=== PATIENT | male | born 1980 | race African-American/Black ===

== ENCOUNTER 2019-07-30 14:26 | Inpatient (IN) | payer OTHER ==
[~2019-07-30] VITALS: Ht 175.3 cm; Wt 120.5 kg
[2019-07-30 15:12] LABS: BASO % 0 % (0-3); EOS # 0.1 x10^3/uL (0.0-0.7); EOS % 1 % (0-3); HEMATOCRIT 45.3 % (39.0-53.0); HEMOGLOBIN 15.7 g/dL (13.0-17.5); LYMPH # 1.5 x10^3/uL (1.0-4.8); LYMPH % 13 % (24-48); MEAN CORPUSCULAR HEMOGLOBIN 30 pg (25-35); MEAN CORPUSCULAR HGB CONC 35 g/dL (31-37); MEAN CORPUSCULAR VOLUME 87 fL (79-100); MONO # 0.8 x10^3/uL (0.0-1.1); MONO % 7 % (0-9); NEUT # 9.1 x10^3/uL (1.8-7.7); NEUT % 80 % (31-73); PLATELET COUNT 257 x10^3/uL (140-400); RED BLOOD COUNT 5.21 x10^6/uL (4.30-5.70); RED CELL DISTRIBUTION WIDTH 14.8 % (11.5-14.5); WHITE BLOOD COUNT 11.4 x10^3/uL (4.0-11.0)
[2019-07-30 15:17] LABS: CALCIUM 9.4 mg/dL (8.5-10.1); CREATININE 1.1 mg/dL (0.7-1.3); GFR 91.1; POTASSIUM 3.5 mmol/L (3.5-5.1)
[2019-07-30 15:25] LABS: ALBUMIN 4.1 g/dL (3.4-5.0); ALBUMIN/GLOBULIN RATIO 1.1 (1.0-1.7); MAGNESIUM 1.7 mg/dL (1.8-2.4); TOTAL BILIRUBIN 0.9 mg/dL (0.2-1.0)
[2019-07-30] MEDS ORDERED: IV NORMAL SALINE 1000ML BAG 1,000 ML IV ONE (15:30)
[2019-07-30] MEDS ORDERED: MORPHINE SULFATE 4 MG/ML VIAL. IV ONE (16:15)
[2019-07-30] MEDS ORDERED: ONDANSETRON PF 4 MG/2 ML VIAL. IV ONE (16:15)
--- NOTE | 2019-07-30 16:21 | RAD ---
CHEST AP ONLY History: Chest pain, dizziness Comparison: December 05, 2018 Findings: Single view of the chest is submitted. There is no infiltrate, pneumothorax, or effusion. The pericardial cardiac silhouette is within normal limits in size. Impression: 1. There is no radiographic evidence of acute cardiopulmonary disease. Electronically signed by: Cody Vences MD (07/30/2019 4:18 PM) [id number]
[2019-07-30] MEDS ORDERED: IOHEXOL 350 MG/ML 100 ML VIAL. IV ONE (16:30)
[2019-07-30] MEDS ORDERED: CONTRAST GIVEN. MC PRN (16:30)
--- NOTE | 2019-07-30 16:43 | PHYS DOC ---
Past Medical History Past Medical History: DVT, Other Additional Past Medical Histor: HYPERCANNOBOID Past Surgical History: Other Additional Past Surgical Histo: R WRIST ORIF Smoking Status: Current Every Day Smoker Alcohol Use: None Drug Use: Marijuana General Adult EDM: Chief Complaint: CHEST PAIN HPI: HPI: Patient is a 39 year old [f__sex] who presents with [] Review of Systems: Review of Systems: Constitutional: Denies fever or chills. [] Eyes: Denies change in visual acuity. [] HENT: Denies nasal congestion or sore throat. [] Respiratory: Denies cough or shortness of breath. [] Cardiovascular: Denies chest pain or edema. [] GI: Denies abdominal pain, nausea, vomiting, bloody stools or diarrhea. [] : Denies dysuria. [] Musculoskeletal: Denies back pain or joint pain. [] Integument: Denies rash. [] Neurologic: Denies headache, focal weakness or sensory changes. [] Endocrine: Denies polyuria or polydipsia. [] Lymphatic: Denies swollen glands. [] Psychiatric: Denies depression or anxiety. [] Heart Score: HEART Score for Chest Pain: HEART Score for Chest Pain Response (Comments) Value ECG Nonspecific Repolarizatio 1 Age < 45 0 Risk Factors 1 or 2 Risk Factors 1 Troponin < Normal Limit 0 Total 2 Risk Factors: Risk Factors: DM, Current or recent (<one month) smoker, HTN, HLP, family history of CAD, obesity. Risk Scores: Score 0 - 3: 2.5% MACE over next 6 weeks - Discharge Home Score 4 - 6: 20.3% MACE over next 6 weeks - Admit for Clinical Observation Score 7 - 10: 72.7% MACE over next 6 weeks - Early Invasive Strategies Current Medications: Current Medications Medications (Trade) Dose Ordered Sig/Anisha Start Time Stop Time Status Last Admin Dose Admin Info (CONTRAST GIVEN -- Rx MONITORING) 1 each PRN DAILY PRN 07/30/19 16:30 08/01/19 16:29 Iohexol (Omnipaque 350 Mg/ml) 100 ml 1X ONCE 07/30/19 16:30 07/30/19 16:31 DC Morphine Sulfate (Morphine Sulfate) 4 mg 1X ONCE 07/30/19 16:15 07/30/19 16:16 DC 07/30/19 16:18 4 MG Ondansetron HCl (Zofran) 4 mg 1X ONCE 07/30/19 16:15 07/30/19 16:16 DC 07/30/19 16:17 4 MG Sodium Chloride 1,000 ml @ 1,000 mls/hr 1X ONCE 07/30/19 15:30 07/30/19 16:29 DC 07/30/19 15:49 1,000 MLS/HR Allergies: Allergies: Allergies Coded Allergies Type Severity Reaction Last Updated Verified No Known Drug Allergies 12/05/18 No Physical Exam: PE: Constitutional: Well developed, well nourished, no acute distress, non-toxic a ppearance, obese. [] HENT: Normocephalic, atraumatic, bilateral external ears normal, oropharynx moist, no oral exudates, nose normal. [] Eyes: PERRLA, EOMI, conjunctiva normal, no discharge. [] Neck: Normal range of motion, no stridor. [] Cardiovascular:Heart rate irregular bradycardic rhythm, no murmur [] Lungs & Thorax: Bilateral breath sounds clear to auscultation, Respirations even and unlabored, no retractions, no respiratory distress [] Abdomen: soft, no tenderness Skin: Warm, dry, no erythema, no rash. [] Back: No tenderness, Extremities: No cyanosis, no clubbing, ROM intact, no edema. [] Neurologic: Alert and oriented X 3, no focal deficits noted. [] Psychologic: Affect normal, judgement normal, mood anxious Current Patient Data: Labs: Laboratory Tests Test 07/30/19 14:45 White Blood Count 11.4 x10^3/uL (4.0-11.0) H Red Blood Count 5.21 x10^6/uL (4.30-5.70) Hemoglobin 15.7 g/dL (13.0-17.5) Hematocrit 45.3 % (39.0-53.0) Mean Corpuscular Volume 87 fL (79-100) Mean Corpuscular Hemoglobin 30 pg (25-35) Mean Corpuscular Hemoglobin Concent 35 g/dL (31-37) Red Cell Distribution Width 14.8 % (11.5-14.5) H Platelet Count 257 x10^3/uL (140-400) Neutrophils (%) (Auto) 80 % (31-73) H Lymphocytes (%) (Auto) 13 % (24-48) L Monocytes (%) (Auto) 7 % (0-9) Eosinophils (%) (Auto) 1 % (0-3) Basophils (%) (Auto) 0 % (0-3) Neutrophils # (Auto) 9.1 x10^3/uL (1.8-7.7) H Lymphocytes # (Auto) 1.5 x10^3/uL (1.0-4.8) Monocytes # (Auto) 0.8 x10^3/uL (0.0-1.1) Eosinophils # (Auto) 0.1 x10^3/uL (0.0-0.7) Basophils # (Auto) 0.0 x10^3/uL (0.0-0.2) D-Dimer (Portia) 1.53 ug/mlFEU (0.00-0.50) H Sodium Level 139 mmol/L (136-145) Potassium Level 3.5 mmol/L (3.5-5.1) Chloride Level 103 mmol/L (98-107) Carbon Dioxide Level 23 mmol/L (21-32) Anion Gap 13 (6-14) Blood Urea Nitrogen 10 mg/dL (8-26) Creatinine 1.1 mg/dL (0.7-1.3) Estimated GFR (Cockcroft-Gault) 91.1 BUN/Creatinine Ratio 9 (6-20) Glucose Level 124 mg/dL (70-99) H Calcium Level 9.4 mg/dL (8.5-10.1) Magnesium Level 1.7 mg/dL (1.8-2.4) L Total Bilirubin 0.9 mg/dL (0.2-1.0) Aspartate Amino Transferase (AST) 27 U/L (15-37) Alanine Aminotransferase (ALT) 45 U/L (16-63) Alkaline Phosphatase 98 U/L (46-116) Creatine Kinase 337 U/L (39-308) H Creatine Kinase MB (Mass) 1.2 ng/mL (0.0-3.6) Creatine Kinase MB Relative Index 0.4 % (0-4) Troponin I Quantitative < 0.017 ng/mL (0.000-0.055) Total Protein 8.0 g/dL (6.4-8.2) Albumin 4.1 g/dL (3.4-5.0) Albumin/Globulin Ratio 1.1 (1.0-1.7) Ethyl Alcohol Level < 10 mg/dL (0-10) Laboratory Tests 07/30/19 14:45 Laboratory Tests 07/30/19 14:45 Vital Signs: Vital Signs Date Time Temp Pulse Resp B/P (MAP) Pulse Ox O2 Delivery O2 Flow Rate FiO2 07/30/19 16:18 99 Room Air 07/30/19 16:12 167/80 (109) 07/30/19 14:26 98.2 39 16 98.2 EKG: EK-sinus bradycardia with T abnormality in inferior leads, nonspecific ST abnormality, abnormal EKG, rate of 39, no STEMI read by Dr. Montano Radiology/Procedures: Radiology/Procedures: PROCEDURE: CHEST AP ONLY CHEST AP ONLY History: Chest pain, dizziness Comparison: December 05, 2018 Findings: Single view of the chest is submitted. There is no infiltrate, pneumothorax, or effusion. The pericardial cardiac silhouette is within normal limits in size. Impression: 1. There is no radiographic evidence of acute cardiopulmonary disease.[] Course & Med Decision Making: Course & Med Decision Making Pertinent Labs and Imaging studies reviewed. (See chart for details) Patient is a 39-year-old male who presents to the emergency department with complaints of awakening with nausea this morning having one episode of emesis and diaphoresis and since having complaints of pressure in his chest and feeling lightheaded. Patient appeared very anxious upon arrival. Work-up included: a CBC with white blood cell count of 11.4 otherwise unre markable; a d-dimer of 1.53; CMP revealed glucose of 124, magnesium 1.7, and CK 337. Patient's troponin was less than 0.017; patient's urine was unremarkable; urine drug screen was positive for cocaine, opiates, and cannabinoids Chest x-ray was unremarkable CT angio of chest revealed no pulmonary arterial disease or infiltrate a small hiatal hernia, and minimal mosaic attenuation which raises a question of mild small airway disease or small vessel disease. 1627- I spoke with Dr. De Guzman and discussed pt complaint of CP and bradycardia. Advised CT angio is pending. Will admit to hospitalist with serial enzymes ordered. 1707- I spoke with who is the admitting physician, and care was assumed following discussion of patient, will admit for chest pain and bradycardia. Patient's vital signs stable. Patient remains afebrile, appears nontoxic, respirations even and unlabored. Patient will be admitted to the tele floor. Patient's case and plan of care also discussed with Dr. Montano [] Tom Disclaimer: Tom Disclaimer: This electronic medical record was generated, in whole or in part, using a voice recognition dictation system. Departure Departure Impression: Primary Impression: Chest pain in adult Additional Impression: Bradycardia with 31-40 beats per minute Disposition: ADMITTED INPATIENT Admitting Physician: MAIRA Villanueva) Condition: STABLE Referrals: NO PCP (PCP) Scripts No Active Prescriptions or Reported Meds LISE EAST [employer] Jul 30, 2019 16:43
--- NOTE | 2019-07-30 17:00 | RAD ---
Examination: CT ANGIOGRAPHY CHEST History: Elevated d-dimer, chest pressure Comparison/Correlation: 07/30/2019 AP view of the chest Findings: Axial images of the chest were obtained following IV contrast according to pulmonary arteriography protocol. Sagittal and coronal reformatted images were provided. Maximum intensity projection images were provided. The pulmonary arterial vasculature is normal with no thromboembolic disease. No enlarged thoracic lymph nodes. No infiltrates or effusions. Mild mosaic attenuation of the lower lung ponce greater on the right is present and may represent air trapping or small airways disease. Tracheobronchial tree is unremarkable. Thoracic aorta is unremarkable although not opacified for arteriographic evaluation. Small hiatal hernia is present. Bony structures are unremarkable. Impression: No pulmonary arterial parenchymal disease or infiltrate. Small hiatal hernia. Minimal mosaic attenuation which raises question of mild small airways disease or small vessel disease. PQRS Compliance Statement: One or more of the following individualized dose reduction techniques were utilized for this examination: 1. Automated exposure control 2. Adjustment of the mA and/or kV according to patient size 3. Use of iterative reconstruction technique Electronically signed by: Florecnio Monae MD (07/30/2019 4:57 PM) [id number]
[2019-07-30] MEDS ORDERED: ONDANSETRON PF 4 MG/2 ML VIAL. IV PRN (17:15)
[2019-07-30] MEDS ORDERED: DOCUSATE SODIUM 100 MG CAPSULE. PO PRN (17:15)
[2019-07-30] MEDS ORDERED: ACETAMINOPHEN 325 MG TABLET. PO PRN (17:15)
[2019-07-30] MEDS ORDERED: guaiFENesin ORAL 200 MG/10 ML LIQUID. PO PRN (17:15)
[2019-07-30] MEDS ORDERED: cloNIDine HCL 0.1 MG TABLET PO PRN (17:15)
[2019-07-30] MEDS ORDERED: MORPHINE SULFATE 4 MG/ML VIAL. IV PRN (17:15)
[2019-07-30] MEDS ORDERED: ZOLPIDEM 5 MG TABLET. PO PRN (17:15)
[2019-07-30] MEDS ORDERED: ALBUTEROL SULFATE 2.5 MG/3 ML NEBU. NEB PRN (17:15)
[2019-07-30 17:33] LABS: BILIRUBIN,URINE NEGATIVE (NEG); CLARITY,URINE CLEAR; COLOR,URINE YELLOW; NITRITE,URINE NEGATIVE (NEG); PH,URINE 8.5 (<5.0-8.0); PROTEIN,URINE NEGATIVE (NEG-TRACE); UROBILINOGEN,URINE 0.2 mg/dL (0.2 mg/dL)
[2019-07-30 17:45] LABS: BARBITURATES NEG (NEG); BENZODIAZEPINES NEG (NEG); CANNABINOIDS POS (NEG); COCAINE POS (NEG); METHADONE NEG (NEG); OPIATES POS (NEG); PHENCYCLIDINE NEG (NEG)
[2019-07-30 17:50] LABS: BACTERIA,URINE 0 /HPF (0-FEW); RBC,URINE 0 /HPF (0-2); WBC,URINE OCC /HPF (0-4)
[2019-07-30 17:54] LABS: AMPHETAMINE/METHAMPHETAMINE NEG (NEG)
[2019-07-30 18:18] VITALS: BP 195/92
--- NOTE | 2019-07-30 18:49 | NUR ---
Patient arrived to room 262 via wheelchair from ER at 1755. Patient A&OX4. Patient complains of being short of breath, O2 saturation 98% on room air, however 2L Q2 NC placed on patient for comfort. No complaints of pain at this time. Will continue to monitor.
--- NOTE | 2019-07-30 19:37 | PDOC1 ---
History and Physical Date of Admission Date of Admission July 30, 2019 Identification/Chief Complaint Chief Complaint Chest pain Source Source: Chart review, Patient History of Present Illness History of Present Illness Patient is a 39-year-old gentleman with past medical history of polysubstance abuse including marijuana and cocaine who was in his usual state of health until the day of his admission when apparently he woke up with a chest pressure over the precordial area. The patient denies radiation to the arm of the jaw this was at rest and patient also has associated dyspnea. The patient due to his dyspnea and because of the current coronavirus situation got quite anxious and decided to come to the emergency department for evaluation. His work-up in the emergency department has yielded negative results with no on his no EKG changes the patient will be admitted at the request of the ER for chest pain evaluation. Patient is quite anxious at the time of my interview and he has thought in the past about quitting the substance abuse. Counseling has been done extensively and I have stressed the importance of quitting his current cocaine habit due to the adverse effects on his heart health. The patient denies fevers no cough or sputum production has been reported no changes in his sense of smell or taste buds he denies sick contacts he denies nausea vomiting no sensation of impending doom he describes the pain as a sharp sensation with a 8 out of 10 intensity at the worst times currently as ymptomatic. Plan of care has been explained in detail and all of his concerns were addressed to the best of my abilities Past Medical History Cardiovascular: CHF Psych: Addictions Past Surgical History Past Surgical History: No pertinent history Family History Family History: High Cholestrol Social History Smoke: # pack years (10) ALCOHOL: rare Drugs: Cocaine, Marijuana Current Problem List Problem List Problems Medical Problems: (1) Bradycardia with 31-40 beats per minute Status: Acute (2) Chest pain in adult Status: Acute Current Medications Current Medications Current Medications Medications (Trade) Dose Ordered Sig/Anisha Start Time Stop Time Status Last Admin Dose Admin Acetaminophen (Tylenol) 650 mg PRN Q4HRS PRN 07/30/19 17:15 Albuterol Sulfate (Ventolin Neb Soln) 2.5 mg PRN Q4HRS PRN 07/30/19 17:15 Clonidine HCl (Catapres) 0.1 mg PRN Q6HRS PRN 07/30/19 17:15 Docusate Sodium (Colace) 100 mg PRN BID PRN 07/30/19 17:15 Guaifenesin (Robitussin) 200 mg PRN Q4HRS PRN 07/30/19 17:15 Info (CONTRAST GIVEN -- Rx MONITORING) 1 each PRN DAILY PRN 07/30/19 16:30 08/01/19 16:29 Iohexol (Omnipaque 350 Mg/ml) 100 ml 1X ONCE 07/30/19 16:30 07/30/19 16:31 DC 07/30/19 16:51 100 ML Lorazepam (Ativan) 0.5 mg PRN Q4HRS PRN 07/30/19 17:15 Morphine Sulfate (Morphine Sulfate) 4 mg PRN Q2HR PRN 07/30/19 17:15 07/31/19 17:14 Ondansetron HCl (Zofran) 4 mg PRN Q8HRS PRN 07/30/19 17:15 07/31/19 17:14 Sodium Chloride 1,000 ml @ 1,000 mls/hr 1X ONCE 07/30/19 15:30 07/30/19 16:29 DC 07/30/19 15:49 1,000 MLS/HR Zolpidem Tartrate (Ambien) 5 mg PRN QHS PRN 07/30/19 17:15 Allergies Allergies Allergies Coded Allergies Type Severity Reaction Last Updated Verified No Known Drug Allergies 12/05/18 No ROS Review of System CONSTITUTIONAL: No fever or chills EYES: No recent changes SKIN: No rash or itching CARDIOVASCULAR: No chest pain, syncope, palpitations, or edema RESPIRATORY: No SOB or cough GASTROINTESTINAL: No nausea, vomiting or abdominal pain NEUROLOGICAL: No headaches or weakness ENDOCRINE: No cold or heat intolerance GENITOURINARY: No urgency or frequency of urination MUSCULOSKELETAL: No back pain or joint pain LYMPHATICS: No enlarged lymph nodes PSYCHIATRIC: No anxiety or depression Physical Exam Physical Exam GEN.: No apparent distress. Alert and oriented. HEENT: Head is normocephalic, atraumatic NECK: Supple. LUNGS: Clear to auscultation. HEART: RRR, S1, S2 present. Peripheral pulses intact ABDOMEN: Soft, nontender. Positive bowel sounds. EXTREMITIES: Without any cyanosis. NEUROLOGIC: Normal speech, normal tone PSYCHIATRIC: Normal affect, normal mood. SKIN: No ulcerations Vitals Vitals Vital Signs Date Time Temp Pulse Resp B/P (MAP) Pulse Ox O2 Delivery O2 Flow Rate FiO2 07/30/19 19:19 Room Air 07/30/19 18:18 98.1 50 24 195/92 (126) 98 98.1 07/30/19 18:00 2.0 Labs Labs Laboratory Tests Test 07/30/19 14:45 07/30/19 17:25 White Blood Count 11.4 x10^3/uL (4.0-11.0) Red Blood Count 5.21 x10^6/uL (4.30-5.70) Hemoglobin 15.7 g/dL (13.0-17.5) Hematocrit 45.3 % (39.0-53.0) Mean Corpuscular Volume 87 fL (79-100) Mean Corpuscular Hemoglobin 30 pg (25-35) Mean Corpuscular Hemoglobin Concent 35 g/dL (31-37) Red Cell Distribution Width 14.8 % (11.5-14.5) Platelet Count 257 x10^3/uL (140-400) Neutrophils (%) (Auto) 80 % (31-73) Lymphocytes (%) (Auto) 13 % (24-48) Monocytes (%) (Auto) 7 % (0-9) Eosinophils (%) (Auto) 1 % (0-3) Basophils (%) (Auto) 0 % (0-3) Neutrophils # (Auto) 9.1 x10^3/uL (1.8-7.7) Lymphocytes # (Auto) 1.5 x10^3/uL (1.0-4.8) Monocytes # (Auto) 0.8 x10^3/uL (0.0-1.1) Eosinophils # (Auto) 0.1 x10^3/uL (0.0-0.7) Basophils # (Auto) 0.0 x10^3/uL (0.0-0.2) D-Dimer (Portia) 1.53 ug/mlFEU (0.00-0.50) Sodium Level 139 mmol/L (136-145) Potassium Level 3.5 mmol/L (3.5-5.1) Chloride Level 103 mmol/L (98-107) Carbon Dioxide Level 23 mmol/L (21-32) Anion Gap 13 (6-14) Blood Urea Nitrogen 10 mg/dL (8-26) Creatinine 1.1 mg/dL (0.7-1.3) Estimated GFR (Cockcroft-Gault) 91.1 BUN/Creatinine Ratio 9 (6-20) Glucose Level 124 mg/dL (70-99) Calcium Level 9.4 mg/dL (8.5-10.1) Magnesium Level 1.7 mg/dL (1.8-2.4) Total Bilirubin 0.9 mg/dL (0.2-1.0) Aspartate Amino Transf (AST/SGOT) 27 U/L (15-37) Alanine Aminotransferase (ALT/SGPT) 45 U/L (16-63) Alkaline Phosphatase 98 U/L (46-116) Creatine Kinase 337 U/L (39-308) Creatine Kinase MB (Mass) 1.2 ng/mL (0.0-3.6) Creatine Kinase MB Relative Index 0.4 % (0-4) Troponin I Quantitative < 0.017 ng/mL (0.000-0.055) Total Protein 8.0 g/dL (6.4-8.2) Albumin 4.1 g/dL (3.4-5.0) Albumin/Globulin Ratio 1.1 (1.0-1.7) Ethyl Alcohol Level < 10 mg/dL (0-10) Urine Collection Type Unknown Urine Color Yellow Urine Clarity Clear Urine pH 8.5 (<5.0-8.0) Urine Specific [place] >=1.030 (1.000-1.030) Urine Protein Negative mg/dL (NEG-TRACE) Urine Glucose (UA) Negative mg/dL (NEG) Urine Ketones (Stick) 15 mg/dL (NEG) Urine Blood Negative (NEG) Urine Nitrite Negative (NEG) Urine Bilirubin Negative (NEG) Urine Urobilinogen Dipstick 0.2 mg/dL (0.2 mg/dL) Urine Leukocyte Esterase Negative (NEG) Urine RBC 0 /HPF (0-2) Urine WBC Occ /HPF (0-4) Urine Bacteria 0 /HPF (0-FEW) Urine Opiates Screen Pos (NEG) Urine Methadone Screen Neg (NEG) Urine Barbiturates Neg (NEG) Urine Phencyclidine Screen Neg (NEG) Urine Amphetamine/Methamphetamine Neg (NEG) Urine Benzodiazepines Screen Neg (NEG) Urine Cocaine Screen Pos (NEG) Urine Cannabinoids Screen Pos (NEG) Urine Ethyl Alcohol Neg (NEG) Laboratory Tests Test 07/30/19 14:45 07/30/19 17:25 White Blood Count 11.4 x10^3/uL (4.0-11.0) Red Blood Count 5.21 x10^6/uL (4.30-5.70) Hemoglobin 15.7 g/dL (13.0-17.5) Hematocrit 45.3 % (39.0-53.0) Mean Corpuscular Volume 87 fL (79-100) Mean Corpuscular Hemoglobin 30 pg (25-35) Mean Corpuscular Hemoglobin Concent 35 g/dL (31-37) Red Cell Distribution Width 14.8 % (11.5-14.5) Platelet Count 257 x10^3/uL (140-400) Neutrophils (%) (Auto) 80 % (31-73) Lymphocytes (%) (Auto) 13 % (24-48) Monocytes (%) (Auto) 7 % (0-9) Eosinophils (%) (Auto) 1 % (0-3) Basophils (%) (Auto) 0 % (0-3) Neutrophils # (Auto) 9.1 x10^3/uL (1.8-7.7) Lymphocytes # (Auto) 1.5 x10^3/uL (1.0-4.8) Monocytes # (Auto) 0.8 x10^3/uL (0.0-1.1) Eosinophils # (Auto) 0.1 x10^3/uL (0.0-0.7) Basophils # (Auto) 0.0 x10^3/uL (0.0-0.2) D-Dimer (Portia) 1.53 ug/mlFEU (0.00-0.50) Sodium Level 139 mmol/L (136-145) Potassium Level 3.5 mmol/L (3.5-5.1) Chloride Level 103 mmol/L (98-107) Carbon Dioxide Level 23 mmol/L (21-32) Anion Gap 13 (6-14) Blood Urea Nitrogen 10 mg/dL (8-26) Creatinine 1.1 mg/dL (0.7-1.3) Estimated GFR (Cockcroft-Gault) 91.1 BUN/Creatinine Ratio 9 (6-20) Glucose Level 124 mg/dL (70-99) Calcium Level 9.4 mg/dL (8.5-10.1) Magnesium Level 1.7 mg/dL (1.8-2.4) Total Bilirubin 0.9 mg/dL (0.2-1.0) Aspartate Amino Transf (AST/SGOT) 27 U/L (15-37) Alanine Aminotransferase (ALT/SGPT) 45 U/L (16-63) Alkaline Phosphatase 98 U/L (46-116) Creatine Kinase 337 U/L (39-308) Creatine Kinase MB (Mass) 1.2 ng/mL (0.0-3.6) Creatine Kinase MB Relative Index 0.4 % (0-4) Troponin I Quantitative < 0.017 ng/mL (0.000-0.055) Total Protein 8.0 g/dL (6.4-8.2) Albumin 4.1 g/dL (3.4-5.0) Albumin/Globulin Ratio 1.1 (1.0-1.7) Ethyl Alcohol Level < 10 mg/dL (0-10) Urine Collection Type Unknown Urine Color Yellow Urine Clarity Clear Urine pH 8.5 (<5.0-8.0) Urine Specific [place] >=1.030 (1.000-1.030) Urine Protein Negative mg/dL (NEG-TRACE) Urine Glucose (UA) Negative mg/dL (NEG) Urine Ketones (Stick) 15 mg/dL (NEG) Urine Blood Negative (NEG) Urine Nitrite Negative (NEG) Urine Bilirubin Negative (NEG) Urine Urobilinogen Dipstick 0.2 mg/dL (0.2 mg/dL) Urine Leukocyte Esterase Negative (NEG) Urine RBC 0 /HPF (0-2) Urine WBC Occ /HPF (0-4) Urine Bacteria 0 /HPF (0-FEW) Urine Opiates Screen Pos (NEG) Urine Methadone Screen Neg (NEG) Urine Barbiturates Neg (NEG) Urine Phencyclidine Screen Neg (NEG) Urine Amphetamine/Methamphetamine Neg (NEG) Urine Benzodiazepines Screen Neg (NEG) Urine Cocaine Screen Pos (NEG) Urine Cannabinoids Screen Pos (NEG) Urine Ethyl Alcohol Neg (NEG) VTE Prophylaxis Ordered VTE Prophylaxis Devices: No VTE Pharmacological Prophylaxi: Yes Assessment/Plan Assessment/Plan Chest pain secondary to cocaine abuse Hypertension uncontrolled most likely secondary to cocaine abuse Anxiety disorder most likely a consequence of his polysubstance abuse Polysubstance abuse counseling done Plan Admit the patient to the medical floor with telemetry so he can be trended with serial troponins Cardiology consultation Further recommendations based on the clinical course We will continue to stressed importance of abstaining from illegal drug abuse DVT prophylaxis with Lovenox JACOB ANTOINE MD Jul 30, 2019 19:37
[2019-07-30 19:50] VITALS: BP 137/80
[2019-07-30 23:05] VITALS: BP 146/74
[2019-07-30] MEDS: LORazepam 0.5 MG TABLET PO PRN (23:20)
[2019-07-31 00:39] LABS: CHOLESTEROL/HDL RATIO 3.8
[2019-07-31 03:45] VITALS: BP 131/64
[2019-07-31] MEDS: ONDANSETRON PF 4 MG/2 ML VIAL. IV PRN ×2 (03:49→09:22)
[2019-07-31] MEDS: LORazepam 0.5 MG TABLET PO PRN (03:49)
--- NOTE | 2019-07-31 06:07 | EKG ---
[facility] [address] [place] [address] Test Date: 2019-07-30 Test Time: 14:34:41 Pat Name: JACOBY TORRES Department: Room: 262 1 Gender: M Stock Or Delivery Clerk: : 1980 Requested By: LISE EAST Order Number: [id number] Reading MD: Ayan Larsen Measurements Intervals [place] Rate: 39 P: -30 DE: 194 QRS: 42 QRSD: 84 T: -22 QT: 568 QTc: 462 Interpretive Statements SINUS BRADYCARDIA T ABNORMALITY IN INFERIOR LEADS NON SPECIFIC ST-T ABNORMALITY Electronically Signed On 07-31-2019 11:16:18 CDT by Ayan Larsen
[2019-07-31 07:00] VITALS: BP 124/63
[2019-07-31 09:47] LABS: CALCIUM 8.9 mg/dL (8.5-10.1); CREATININE 1.2 mg/dL (0.7-1.3); GFR 82.4; MAGNESIUM 1.8 mg/dL (1.8-2.4); POTASSIUM 3.5 mmol/L (3.5-5.1)
--- NOTE | 2019-07-31 10:09 | PDOC2 ---
VICKI LIN APRN 07/31/19 1009: CARDIAC CONSULT DATE OF CONSULT Date of Consult DATE: 07/31/19 TIME: 10:03 REASON FOR CONSULT Reason for Consult: Chest pain Bradycardia REFERRING PHYSICIAN Referring Physician: Sharon Sanford APRN SOURCE Source: Chart review, Patient HISTORY OF PRESENT ILLNESS HISTORY OF PRESENT ILLNESS This is a 39 yo male who presented secondary to chest pain. Patient reports he w smiley up yesterday morning with nausea. Had episode of vomiting and then began having burning pain in his central chest. Pain persisted and continued to feel nauseated so he came to the ED for further evaluation and treatment. No associated shortness of breath, dizziness, diaphoresis, or palpitations. Admits to routine cocaine and marijuana use. Is interested in quitting. Continue to have burning sensation in central chest. PAST MEDICAL HISTORY Cardiovascular: No pertinent hx Pulmonary: No pertinent hx Heme/Onc: Other (DVT) Hepatobiliary: No pertinent hx Rheumatologic: No pertinent hx Infectious disease: No pertinent hx Renal/: No pertinent hx Endocrine: No pertinent hx PAST SURGICAL HISTORY Past Surgical History: No pertinent history FAMILY HISTORY Family History: Diabetes, Hypertension SOCIAL HISTORY Smoke: 1 pack per day ALCOHOL: none Drugs: Cocaine, Marijuana Lives: with Family CURRENT MEDICATIONS CURRENT MEDICATIONS Current Medications Medications (Trade) Dose Ordered Sig/Anisha Route PRN Reason Start Time Stop Time Status Last Admin Dose Admin Sodium Chloride 1,000 ml @ 1,000 mls/hr 1X ONCE IV 07/30/19 15:30 07/30/19 16:29 DC 07/30/19 15:49 Morphine Sulfate (Morphine Sulfate) 4 mg 1X ONCE IV 07/30/19 16:15 07/30/19 16:16 DC 07/30/19 16:18 Ondansetron HCl (Zofran) 4 mg 1X ONCE IV 07/30/19 16:15 07/30/19 16:16 DC 07/30/19 16:17 Iohexol (Omnipaque 350 Mg/ml) 100 ml 1X ONCE IV 07/30/19 16:30 07/30/19 16:31 DC 07/30/19 16:51 Ondansetron HCl (Zofran) 4 mg PRN Q4HRS PRN IV NAUSEA/VOMITING 07/30/19 17:15 07/31/19 09:22 Lorazepam (Ativan) 0.5 mg PRN Q4HRS PRN PO ANXIETY / AGITATION 07/30/19 17:15 07/31/19 03:49 ALLERGIES ALLERGIES: Coded Allergies: No Known Drug Allergies (Unverified , 12/05/18) ROS Review of System 14 point ROS conducted with pertinent positives noted above in HPI PHYSICAL EXAM General: Alert, Oriented X3, Cooperative, No acute distress HEENT: Atraumatic, Mucous membr. moist/pink Lungs: Clear to auscultation Heart: Regular rate, Normal S1, Normal S2 Abdomen: Soft, No tenderness Extremities: No edema, Normal pulses Skin: No significant lesion Neuro: Normal speech, Sensation intact Psych/Mental Status: Mental status NL, Mood NL MUSCULOSKELETAL: No joint tenderness VITALS/I&O VITALS/I&O: Vital Signs Date Time Temp Pulse Resp B/P (MAP) Pulse Ox O2 Delivery O2 Flow Rate FiO2 07/31/19 07:00 97.9 60 16 124/63 (83) 97 Room Air 97.9 07/30/19 18:00 2.0 I & O 07/30/19 07/30/19 07/31/19 15:00 23:00 07:00 Intake Total 1000 ml 0 ml Output Total 450 ml 400 ml Balance 550 ml -400 ml LABS Lab: Laboratory Tests Test 07/30/19 14:45 07/30/19 17:25 07/30/19 21:05 07/31/19 00:14 White Blood Count 11.4 x10^3/uL (4.0-11.0) H Red Blood Count 5.21 x10^6/uL (4.30-5.70) Hemoglobin 15.7 g/dL (13.0-17.5) Hematocrit 45.3 % (39.0-53.0) Mean Corpuscular Volume 87 fL (79-100) Mean Corpuscular Hemoglobin 30 pg (25-35) Mean Corpuscular Hemoglobin Concent 35 g/dL (31-37) Red Cell Distribution Width 14.8 % (11.5-14.5) H Platelet Count 257 x10^3/uL (140-400) Neutrophils (%) (Auto) 80 % (31-73) H Lymphocytes (%) (Auto) 13 % (24-48) L Monocytes (%) (Auto) 7 % (0-9) Eosinophils (%) (Auto) 1 % (0-3) Basophils (%) (Auto) 0 % (0-3) Neutrophils # (Auto) 9.1 x10^3/uL (1.8-7.7) H Lymphocytes # (Auto) 1.5 x10^3/uL (1.0-4.8) Monocytes # (Auto) 0.8 x10^3/uL (0.0-1.1) Eosinophils # (Auto) 0.1 x10^3/uL (0.0-0.7) Basophils # (Auto) 0.0 x10^3/uL (0.0-0.2) D-Dimer (Portia) 1.53 ug/mlFEU (0.00-0.50) H Sodium Level 139 mmol/L (136-145) Potassium Level 3.5 mmol/L (3.5-5.1) Chloride Level 103 mmol/L (98-107) Carbon Dioxide Level 23 mmol/L (21-32) Anion Gap 13 (6-14) Blood Urea Nitrogen 10 mg/dL (8-26) Creatinine 1.1 mg/dL (0.7-1.3) Estimated GFR (Cockcroft-Gault) 91.1 BUN/Creatinine Ratio 9 (6-20) Glucose Level 124 mg/dL (70-99) H Calcium Level 9.4 mg/dL (8.5-10.1) Magnesium Level 1.7 mg/dL (1.8-2.4) L Total Bilirubin 0.9 mg/dL (0.2-1.0) Aspartate Amino Transferase (AST) 27 U/L (15-37) Alanine Aminotransferase (ALT) 45 U/L (16-63) Alkaline Phosphatase 98 U/L (46-116) Creatine Kinase 337 U/L (39-308) H Creatine Kinase MB (Mass) 1.2 ng/mL (0.0-3.6) Creatine Kinase MB Relative Index 0.4 % (0-4) Troponin I Quantitative < 0.017 ng/mL (0.000-0.055) < 0.017 ng/mL (0.000-0.055) < 0.017 ng/mL (0.000-0.055) Total Protein 8.0 g/dL (6.4-8.2) Albumin 4.1 g/dL (3.4-5.0) Albumin/Globulin Ratio 1.1 (1.0-1.7) Ethyl Alcohol Level < 10 mg/dL (0-10) Urine Collection Type Unknown Urine Color Yellow Urine Clarity Clear Urine pH 8.5 (<5.0-8.0) Urine Specific [place] >=1.030 (1.000-1.030) Urine Protein Negative mg/dL (NEG-TRACE) Urine Glucose (UA) Negative mg/dL (NEG) Urine Ketones (Stick) 15 mg/dL (NEG) Urine Blood Negative (NEG) Urine Nitrite Negative (NEG) Urine Bilirubin Negative (NEG) Urine Urobilinogen Dipstick 0.2 mg/dL (0.2 mg/dL) Urine Leukocyte Esterase Negative (NEG) Urine RBC 0 /HPF (0-2) Urine WBC Occ /HPF (0-4) Urine Bacteria 0 /HPF (0-FEW) Urine Opiates Screen Pos (NEG) Urine Methadone Screen Neg (NEG) Urine Barbiturates Neg (NEG) Urine Phencyclidine Screen Neg (NEG) Urine Amphetamine/Methamphetamine Neg (NEG) Urine Benzodiazepines Screen Neg (NEG) Urine Cocaine Screen Pos (NEG) Urine Cannabinoids Screen Pos (NEG) Urine Ethyl Alcohol Neg (NEG) Triglycerides Level 53 mg/dL (0-150) Cholesterol Level 204 mg/dL (0-200) H LDL Cholesterol, Calculated 139 mg/dL (0-100) H VLDL Cholesterol, Calculated 11 mg/dL (0-40) Non-HDL Cholesterol Calculated 150 mg/dL (0-129) H HDL Cholesterol 54 mg/dL (40-60) Cholesterol/HDL Ratio 3.8 Test 07/31/19 09:05 Sodium Level 138 mmol/L (136-145) Potassium Level 3.5 mmol/L (3.5-5.1) Chloride Level 100 mmol/L (98-107) Carbon Dioxide Level 25 mmol/L (21-32) Anion Gap 13 (6-14) Blood Urea Nitrogen 14 mg/dL (8-26) Creatinine 1.2 mg/dL (0.7-1.3) Estimated GFR (Cockcroft-Gault) 82.4 Glucose Level 115 mg/dL (70-99) H Calcium Level 8.9 mg/dL (8.5-10.1) Magnesium Level 1.8 mg/dL (1.8-2.4) Laboratory Tests 07/30/19 14:45 Laboratory Tests 07/30/19 14:45 07/31/19 09:05 ASSESSMENT/PLAN ASSESSMENT/PLAN 1. Chest pain, atypical. AMI ruled out. Most probably GI in nature. 2. Hyperlipidemia 3. Sinus bradycardia. Lowest 45. No pauses. Appropriate chronotropic response 4. GERD 5. H/o DVT; previously on OAC, but moved from [place] to [place] and ran out of meds and never had follow up 6. Substance abuse; cocaine/marijuana use 7. Tobaccoism 8. Elevated d-dimer; CTA negative for PE Recommendations GI cocktail Echo to assess LV systolic function Avoid AV charlene blocking agents Discussed/encouraged cessation from recreational drugs and tobacco. Patient wanting to quit. If echo WNL, may discharge from a CV standpoint. MYESHA ROBBINS MD 07/31/19 1419: CARDIAC CONSULT ASSESSMENT/PLAN ASSESSMENT/PLAN Patient seen and examined. Agree with CATERING COORDINATOR's assessment and plan. Chest pain with atypical features and most probably GI etiology. Myocardial infarction has been ruled out. 2D echo showed normal LV systolic function without any wall motion abnormalities. Okay for DC from cardiac standpoint. Thank you for your consultation. VICKI LIN APRN Jul 31, 2019 10:09 MYESHA ROBBINS MD Jul 31, 2019 14:19
[2019-07-31] MEDS ORDERED: POTASSIUM CHLORIDE 20 MEQ TABLET.ER. PO ONE (12:15)
[2019-07-31] MEDS ORDERED: ONDA4TAB7 PO (12:20)
--- NOTE | 2019-07-31 12:29 | PDOC3 ---
Discharge Summary Visit Information Date of Admission: Jul 30, 2019 Date of Discharge: Jul 31, 2019 Final Diagnosis Chest pain secondary to cocaine abuse Hypertension uncontrolled most likely secondary to cocaine abuse Anxiety disorder most likely a consequence of his polysubstance abuse Polysubstance abuse counseling done Problems Medical Problems: (1) Bradycardia with 31-40 beats per minute Status: Acute (2) Chest pain in adult Status: Acute Brief Hospital Course Allergies Allergies Coded Allergies Type Severity Reaction Last Updated Verified No Known Drug Allergies 12/05/18 No Vital Signs Vital Signs Date Time Temp Pulse Resp B/P (MAP) Pulse Ox O2 Delivery O2 Flow Rate FiO2 07/31/19 08:00 Room Air 07/31/19 07:00 97.9 60 16 124/63 (83) 97 97.9 07/30/19 18:00 2.0 Lab Results Laboratory Tests Test 07/30/19 14:45 07/30/19 17:25 07/30/19 21:05 07/31/19 00:14 White Blood Count 11.4 x10^3/uL (4.0-11.0) Red Blood Count 5.21 x10^6/uL (4.30-5.70) Hemoglobin 15.7 g/dL (13.0-17.5) Hematocrit 45.3 % (39.0-53.0) Mean Corpuscular Volume 87 fL (79-100) Mean Corpuscular Hemoglobin 30 pg (25-35) Mean Corpuscular Hemoglobin Concent 35 g/dL (31-37) Red Cell Distribution Width 14.8 % (11.5-14.5) Platelet Count 257 x10^3/uL (140-400) Neutrophils (%) (Auto) 80 % (31-73) Lymphocytes (%) (Auto) 13 % (24-48) Monocytes (%) (Auto) 7 % (0-9) Eosinophils (%) (Auto) 1 % (0-3) Basophils (%) (Auto) 0 % (0-3) Neutrophils # (Auto) 9.1 x10^3/uL (1.8-7.7) Lymphocytes # (Auto) 1.5 x10^3/uL (1.0-4.8) Monocytes # (Auto) 0.8 x10^3/uL (0.0-1.1) Eosinophils # (Auto) 0.1 x10^3/uL (0.0-0.7) Basophils # (Auto) 0.0 x10^3/uL (0.0-0.2) D-Dimer (Portia) 1.53 ug/mlFEU (0.00-0.50) Sodium Level 139 mmol/L (136-145) Potassium Level 3.5 mmol/L (3.5-5.1) Chloride Level 103 mmol/L (98-107) Carbon Dioxide Level 23 mmol/L (21-32) Anion Gap 13 (6-14) Blood Urea Nitrogen 10 mg/dL (8-26) Creatinine 1.1 mg/dL (0.7-1.3) Estimated GFR (Cockcroft-Gault) 91.1 BUN/Creatinine Ratio 9 (6-20) Glucose Level 124 mg/dL (70-99) Calcium Level 9.4 mg/dL (8.5-10.1) Magnesium Level 1.7 mg/dL (1.8-2.4) Total Bilirubin 0.9 mg/dL (0.2-1.0) Aspartate Amino Transf (AST/SGOT) 27 U/L (15-37) Alanine Aminotransferase (ALT/SGPT) 45 U/L (16-63) Alkaline Phosphatase 98 U/L (46-116) Creatine Kinase 337 U/L (39-308) Creatine Kinase MB (Mass) 1.2 ng/mL (0.0-3.6) Creatine Kinase MB Relative Index 0.4 % (0-4) Troponin I Quantitative < 0.017 ng/mL (0.000-0.055) < 0.017 ng/mL (0.000-0.055) < 0.017 ng/mL (0.000-0.055) Total Protein 8.0 g/dL (6.4-8.2) Albumin 4.1 g/dL (3.4-5.0) Albumin/Globulin Ratio 1.1 (1.0-1.7) Ethyl Alcohol Level < 10 mg/dL (0-10) Urine Collection Type Unknown Urine Color Yellow Urine Clarity Clear Urine pH 8.5 (<5.0-8.0) Urine Specific [place] >=1.030 (1.000-1.030) Urine Protein Negative mg/dL (NEG-TRACE) Urine Glucose (UA) Negative mg/dL (NEG) Urine Ketones (Stick) 15 mg/dL (NEG) Urine Blood Negative (NEG) Urine Nitrite Negative (NEG) Urine Bilirubin Negative (NEG) Urine Urobilinogen Dipstick 0.2 mg/dL (0.2 mg/dL) Urine Leukocyte Esterase Negative (NEG) Urine RBC 0 /HPF (0-2) Urine WBC Occ /HPF (0-4) Urine Bacteria 0 /HPF (0-FEW) Urine Opiates Screen Pos (NEG) Urine Methadone Screen Neg (NEG) Urine Barbiturates Neg (NEG) Urine Phencyclidine Screen Neg (NEG) Urine Amphetamine/Methamphetamine Neg (NEG) Urine Benzodiazepines Screen Neg (NEG) Urine Cocaine Screen Pos (NEG) Urine Cannabinoids Screen Pos (NEG) Urine Ethyl Alcohol Neg (NEG) Triglycerides Level 53 mg/dL (0-150) Cholesterol Level 204 mg/dL (0-200) LDL Cholesterol, Calculated 139 mg/dL (0-100) VLDL Cholesterol, Calculated 11 mg/dL (0-40) Non-HDL Cholesterol Calculated 150 mg/dL (0-129) HDL Cholesterol 54 mg/dL (40-60) Cholesterol/HDL Ratio 3.8 Test 07/31/19 09:05 Sodium Level 138 mmol/L (136-145) Potassium Level 3.5 mmol/L (3.5-5.1) Chloride Level 100 mmol/L (98-107) Carbon Dioxide Level 25 mmol/L (21-32) Anion Gap 13 (6-14) Blood Urea Nitrogen 14 mg/dL (8-26) Creatinine 1.2 mg/dL (0.7-1.3) Estimated GFR (Cockcroft-Gault) 82.4 Glucose Level 115 mg/dL (70-99) Calcium Level 8.9 mg/dL (8.5-10.1) Magnesium Level 1.8 mg/dL (1.8-2.4) Thyroid Stimulating Hormone (TSH) 0.459 uIU/mL (0.358-3.74) Laboratory Tests Test 07/30/19 14:45 07/30/19 17:25 07/30/19 21:05 07/31/19 00:14 White Blood Count 11.4 x10^3/uL (4.0-11.0) Red Blood Count 5.21 x10^6/uL (4.30-5.70) Hemoglobin 15.7 g/dL (13.0-17.5) Hematocrit 45.3 % (39.0-53.0) Mean Corpuscular Volume 87 fL (79-100) Mean Corpuscular Hemoglobin 30 pg (25-35) Mean Corpuscular Hemoglobin Concent 35 g/dL (31-37) Red Cell Distribution Width 14.8 % (11.5-14.5) Platelet Count 257 x10^3/uL (140-400) Neutrophils (%) (Auto) 80 % (31-73) Lymphocytes (%) (Auto) 13 % (24-48) Monocytes (%) (Auto) 7 % (0-9) Eosinophils (%) (Auto) 1 % (0-3) Basophils (%) (Auto) 0 % (0-3) Neutrophils # (Auto) 9.1 x10^3/uL (1.8-7.7) Lymphocytes # (Auto) 1.5 x10^3/uL (1.0-4.8) Monocytes # (Auto) 0.8 x10^3/uL (0.0-1.1) Eosinophils # (Auto) 0.1 x10^3/uL (0.0-0.7) Basophils # (Auto) 0.0 x10^3/uL (0.0-0.2) D-Dimer (Portia) 1.53 ug/mlFEU (0.00-0.50) Sodium Level 139 mmol/L (136-145) Potassium Level 3.5 mmol/L (3.5-5.1) Chloride Level 103 mmol/L (98-107) Carbon Dioxide Level 23 mmol/L (21-32) Anion Gap 13 (6-14) Blood Urea Nitrogen 10 mg/dL (8-26) Creatinine 1.1 mg/dL (0.7-1.3) Estimated GFR (Cockcroft-Gault) 91.1 BUN/Creatinine Ratio 9 (6-20) Glucose Level 124 mg/dL (70-99) Calcium Level 9.4 mg/dL (8.5-10.1) Magnesium Level 1.7 mg/dL (1.8-2.4) Total Bilirubin 0.9 mg/dL (0.2-1.0) Aspartate Amino Transf (AST/SGOT) 27 U/L (15-37) Alanine Aminotransferase (ALT/SGPT) 45 U/L (16-63) Alkaline Phosphatase 98 U/L (46-116) Creatine Kinase 337 U/L (39-308) Creatine Kinase MB (Mass) 1.2 ng/mL (0.0-3.6) Creatine Kinase MB Relative Index 0.4 % (0-4) Troponin I Quantitative < 0.017 ng/mL (0.000-0.055) < 0.017 ng/mL (0.000-0.055) < 0.017 ng/mL (0.000-0.055) Total Protein 8.0 g/dL (6.4-8.2) Albumin 4.1 g/dL (3.4-5.0) Albumin/Globulin Ratio 1.1 (1.0-1.7) Ethyl Alcohol Level < 10 mg/dL (0-10) Urine Collection Type Unknown Urine Color Yellow Urine Clarity Clear Urine pH 8.5 (<5.0-8.0) Urine Specific [place] >=1.030 (1.000-1.030) Urine Protein Negative mg/dL (NEG-TRACE) Urine Glucose (UA) Negative mg/dL (NEG) Urine Ketones (Stick) 15 mg/dL (NEG) Urine Blood Negative (NEG) Urine Nitrite Negative (NEG) Urine Bilirubin Negative (NEG) Urine Urobilinogen Dipstick 0.2 mg/dL (0.2 mg/dL) Urine Leukocyte Esterase Negative (NEG) Urine RBC 0 /HPF (0-2) Urine WBC Occ /HPF (0-4) Urine Bacteria 0 /HPF (0-FEW) Urine Opiates Screen Pos (NEG) Urine Methadone Screen Neg (NEG) Urine Barbiturates Neg (NEG) Urine Phencyclidine Screen Neg (NEG) Urine Amphetamine/Methamphetamine Neg (NEG) Urine Benzodiazepines Screen Neg (NEG) Urine Cocaine Screen Pos (NEG) Urine Cannabinoids Screen Pos (NEG) Urine Ethyl Alcohol Neg (NEG) Triglycerides Level 53 mg/dL (0-150) Cholesterol Level 204 mg/dL (0-200) LDL Cholesterol, Calculated 139 mg/dL (0-100) VLDL Cholesterol, Calculated 11 mg/dL (0-40) Non-HDL Cholesterol Calculated 150 mg/dL (0-129) HDL Cholesterol 54 mg/dL (40-60) Cholesterol/HDL Ratio 3.8 Test 07/31/19 09:05 Sodium Level 138 mmol/L (136-145) Potassium Level 3.5 mmol/L (3.5-5.1) Chloride Level 100 mmol/L (98-107) Carbon Dioxide Level 25 mmol/L (21-32) Anion Gap 13 (6-14) Blood Urea Nitrogen 14 mg/dL (8-26) Creatinine 1.2 mg/dL (0.7-1.3) Estimated GFR (Cockcroft-Gault) 82.4 Glucose Level 115 mg/dL (70-99) Calcium Level 8.9 mg/dL (8.5-10.1) Magnesium Level 1.8 mg/dL (1.8-2.4) Thyroid Stimulating Hormone (TSH) 0.459 uIU/mL (0.358-3.74) Brief Hospital Course MR. Weber is a 39 yo male admit with chest pain after polysubstance abuse cocaine and THC pos urine. chest pain better after overnight, stil some nausea, was NPO, echo done, Discharge Information Condition at Discharge: Improved Follow Up: Weeks Disposition/Orders: D/C to Home Scheduled Ondansetron Hcl (Zofran) 4 Mg Tablet, 1 TAB PO Q6HRS for nausea, #20 Prescribed by: SHEA CALDERON on 07/31/19 1220 Patient Instructions Patient Instructions face to face eval < 30 min SHEA CALDERON MD Jul 31, 2019 12:29
[2019-07-31] MEDS ORDERED: LIDO:MAALOX 1:1 20 ML SINGLE DOSE. SWSW ONE (12:30)
--- NOTE | 2019-07-31 13:05 | CARD ---
MR#: [id number] Date of Study: 07/31/2019 Ordering Physician: VICKI LIN, Referring Physician: VICKI LIN, Tech: Jyoti Grace RAYNE APPROVED REPORT EXAM: Two-dimensional and M-mode echocardiogram with Doppler and color Doppler. Other Information Quality : Good Rhythm : Bradycardia INDICATION Chest Pain RISK FACTORS Smoking 2D DIMENSIONS RVDd2.5 (2.9-3.5cm)Left Atrium(2D)3.6 (1.6-4.0cm) IVSd1.1 (0.7-1.1cm)Aortic Root(2D)2.7 (2.0-3.7cm) LVDd5.4 (3.9-5.9cm)LVOT Diameter2.2 (1.8-2.4cm) PWd1.0 (0.7-1.1cm)LVDs3.3 (2.5-4.0cm) FS (%) 30.0 %SV94.3 ml LVEF(%)60.0 (>50%) Aortic Valve AoV Peak Deshaun.174.2cm/sAoV VTI32.1cm AO Peak GR.12.1mmHgLVOT Peak Deshaun.135.8cm/s AO Mean GR.6mmHgAVA (VMAX)2.91cm2 Mitral Valve MV E Emfwgieo46.5cm/sMV DECEL [id number] MV A Wfoigsaq27.9cm/sE/A Ratio1.6 Pulmonary Vein S1 Aveemryu94.4cm/sD2 Lezwznwy82.2cm/s LEFT VENTRICLE The left ventricle is normal size. There is normal left ventricular wall thickness. The left ventricu lar systolic function is normal. The Ejection Fraction is 55-60%. There is normal LV segmental wall m otion. RIGHT VENTRICLE The right ventricle is normal size. The right ventricular systolic function is normal. ATRIA The left atrium size is normal. The right atrium size is normal. The interatrial septum is intact wit h no evidence for an atrial septal defect or patent foramen ovale as noted on 2-D or Doppler imaging. AORTIC VALVE The aortic valve is normal in structure and function. Doppler and Color Flow revealed no significant aortic regurgitation. There is no significant aortic valvular stenosis. MITRAL VALVE The anterior mitral valve leaflet is redundant but opens well. There is no evidence of mitral valve p rolapse. There is no mitral valve stenosis. Doppler and Color Flow revealed no mitral valve regurgita tion noted. TRICUSPID VALVE The tricuspid valve is normal in structure and function. Doppler and Color Flow revealed trace tricus pid regurgitation. There is no tricuspid valve stenosis. PULMONIC VALVE The pulmonic valve is not well visualized. Doppler and Color Flow revealed mild pulmonic valvular reg urgitation. There is no pulmonic valvular stenosis. GREAT VESSELS The aortic root is normal in size. The ascending aorta is normal in size. The IVC is normal in size a nd collapses >50% with inspiration. PERICARDIAL EFFUSION There is no evidence of significant pericardial effusion. Critical Notification Critical Value: No <Conclusion> The left ventricular systolic function is normal. The Ejection Fraction is 55-60%. There is normal LV segmental wall motion. Doppler and Color Flow revealed trace tricuspid regurgitation. There is no evidence of significant pericardial effusion. Signed by : Ludin Arana, Electronically Approved : 07/31/2019 13:05:14
--- NOTE | 2019-07-31 14:00 | NUR ---
Discharge Note: [facility] Discharge instructions and discharge home medications reviewed with Patient and a copy given. All questions have been answered and understanding verbalized. The following instructions and handouts were given: Follow ups and discharge instructions. Discontinued lines and drains: Right EJ Patient discharged to Home with self care
[2019-08-01] MEDS ORDERED: ONDA4TAB12 PO (08:33)
== END 2019-07-31 14:45 | disposition home or self-care (01) | DRG 918 ==
LOC: ER 14:26 → 2 SOUTH 17:07
PROVIDERS: ADMIT Internal Medicine; ATTEND Internal Medicine
DX: T40.5X1A Poisoning by cocaine, accidental (unintentional), initial encounter (principal); E78.5 Hyperlipidemia, unspecified; F12.10 Cannabis abuse, uncomplicated; F14.10 Cocaine abuse, uncomplicated; F17.210 Nicotine dependence, cigarettes, uncomplicated; F41.9 Anxiety disorder, unspecified; I11.0 Hypertensive heart disease with heart failure; I50.9 Heart failure, unspecified; R07.89 Other chest pain; R00.1 Bradycardia, unspecified; K21.9 Gastro-esophageal reflux disease without esophagitis; Z82.49 Family history of ischemic heart disease and other diseases of the circulatory system; Z83.3 Family history of diabetes mellitus; Z86.718 Personal history of other venous thrombosis and embolism; Z84.89 Family history of other specified conditions; Z71.51 Drug abuse counseling and surveillance of drug abuser; Y92.89 Other specified places as the place of occurrence of the external cause; T40.7X1A Poisoning by cannabis (derivatives), accidental (unintentional), initial encounter
CPT/HCPCS: 36415; 71045; 71275; 80048; 80053; 80061; 80307; 81001; 82553; 83735; 84443; 84484; 85025; 85379; 93005; 93306; 96361; 96374; 96375; 99285; G0480; J2270; J2405; J7030; Q9967; G0378

== ENCOUNTER 2019-08-01 07:27 | Emergency (ER) | payer OTHER ==
[~2019-08-01] VITALS: Ht 180.3 cm; Wt 118.0 kg
[~2019-08-01 07:27] MED LIST: ONDA4TAB7 PO
[2019-08-01] MEDS ORDERED: HALOPERIDOL LACTATE 5 MG/ML VIAL. IVP ONE (07:45)
[2019-08-01] MEDS ORDERED: IV NORMAL SALINE 1000ML BAG 1,000 ML IV ONE (07:45)
--- NOTE | 2019-08-01 07:51 | PHYS DOC ---
Past Medical History Past Medical History: No Pertinent History Additional Past Medical Histor: Vomiting r/t reaction to cannabis. Past Surgical History: Other Additional Past Surgical Histo: R WRIST ORIF Smoking Status: Current Every Day Smoker Alcohol Use: Rarely Drug Use: Marijuana General Adult EDM: Chief Complaint: NAUSEA/VOMITING/DIARRHA HPI: HPI: Patient is a 39-year-old male who states he uses 3 to 4 g of marijuana daily. He states over the last several weeks he has had nearly intractable nausea and vomiting. States it seems worse in the morning. He has been hospitalized once for this. He states he takes multiple baths and hot showers daily. He does not have any medication at home to help with his nausea. He denies any fever chills or sweats. He does have some abdominal cramping. He denies any melena or hematemesis. [] Review of Systems: Review of Systems: Constitutional: Denies fever or chills. [] Eyes: Denies change in visual acuity. [] HENT: Denies nasal congestion or sore throat. [] Respiratory: Denies cough or shortness of breath. [] Cardiovascular: Denies chest pain or edema. [] GI: Per HPI [] : Denies dysuria. [] Musculoskeletal: Denies back pain or joint pain. [] Integument: Denies rash. [] Neurologic: Denies headache, focal weakness or sensory changes. [] Endocrine: Denies polyuria or polydipsia. [] Lymphatic: Denies swollen glands. [] Psychiatric: Denies depression or anxiety. [] Heart Score: Risk Factors: Risk Factors: DM, Current or recent (<one month) smoker, HTN, HLP, family history of CAD, obesity. Risk Scores: Score 0 - 3: 2.5% MACE over next 6 weeks - Discharge Home Score 4 - 6: 20.3% MACE over next 6 weeks - Admit for Clinical Observation Score 7 - 10: 72.7% MACE over next 6 weeks - Early Invasive Strategies Current Medications: Current Medications Medications (Trade) Dose Ordered Sig/Anisha Start Time Stop Time Status Last Admin Dose Admin Haloperidol Lactate (Haldol Inj) 5 mg 1X ONCE 08/01/19 07:45 08/01/19 07:47 DC Sodium Chloride 1,000 ml @ 1,000 mls/hr 1X ONCE 08/01/19 07:45 08/01/19 08:44 Allergies: Allergies: Allergies Coded Allergies Type Severity Reaction Last Updated Verified No Known Drug Allergies 12/05/18 No Physical Exam: PE: Constitutional: Well developed, well nourished, appears acutely ill [] HENT: Normocephalic, atraumatic, bilateral external ears normal, oropharynx moist, no oral exudates, nose normal. [] Eyes: PERRLA, EOMI, conjunctiva normal, no discharge. [] Neck: Normal range of motion, no tenderness, supple, no stridor. [] Cardiovascular:Heart rate regular rhythm, no murmur [] Lungs & Thorax: Bilateral breath sounds clear to auscultation [] Abdomen: Bowel sounds normal, soft, no tenderness, no masses, no pulsatile masses. [] Skin: Warm, dry, no erythema, no rash. [] Back: No tenderness, no CVA tenderness. [] Extremities: No tenderness, no cyanosis, no clubbing, ROM intact, no edema. [] Neurologic: Alert and oriented X 3, normal motor function, normal sensory function, no focal deficits noted. [] Psychologic: Affect normal, judgement normal, mood normal. [] Current Patient Data: Vital Signs: Vital Signs Date Time Temp Pulse Resp B/P (MAP) Pulse Ox O2 Delivery O2 Flow Rate FiO2 08/01/19 07:29 98.3 59 12 142/78 (99) 100 Room Air 98.3 EKG: EKG: [] Radiology/Procedures: Radiology/Procedures: [] Course & Med Decision Making: Course & Med Decision Making Pertinent Labs and Imaging studies reviewed. (See chart for details) [ED course: Evaluation reveals a 39-year-old male with cannabis hyperemesis syndrome. He was given IV fluids and 5 mg of IV Haldol during his stay in the department which did make his symptoms feel better. Spent a great deal of time discussing with the patient the need to stop marijuana use and explained if he did not the symptoms would likely continue indefinitely. I will provide him with Zofran ODT to take at home.] Tom Disclaimer: Tom Disclaimer: This electronic medical record was generated, in whole or in part, using a voice recognition dictation system. Departure Departure Impression: Primary Impression: Cannabinoid hyperemesis syndrome Disposition: HOME, SELF-CARE Condition: IMPROVED Referrals: NO PCP (PCP) Patient Instructions: Cyclic Vomiting Syndrome, Marijuana Abuse and Chemical Dependency Scripts Ondansetron (ONDANSETRON ODT) 4 Mg Tab.rapdis 1 TAB PO PRN Q6-8HRS for VOMITING, #20 TAB Prov: SUZANNE BOLANOS DO 08/01/19 SUZANNE BOLANOS DO Aug 01, 2019 07:51
[2019-08-01 07:56] LABS: BASO # 0.1 x10^3/uL (0.0-0.2); BASO % 1 % (0-3); EOS % 0 % (0-3); HEMATOCRIT 48.3 % (39.0-53.0); HEMOGLOBIN 16.7 g/dL (13.0-17.5); LYMPH # 2.1 x10^3/uL (1.0-4.8); LYMPH % 17 % (24-48); MEAN CORPUSCULAR HEMOGLOBIN 30 pg (25-35); MEAN CORPUSCULAR HGB CONC 35 g/dL (31-37); MEAN CORPUSCULAR VOLUME 86 fL (79-100); MONO # 1.2 x10^3/uL (0.0-1.1); MONO % 10 % (0-9); NEUT # 8.7 x10^3/uL (1.8-7.7); NEUT % 72 % (31-73); PLATELET COUNT 283 x10^3/uL (140-400); RED CELL DISTRIBUTION WIDTH 14.6 % (11.5-14.5); WHITE BLOOD COUNT 12.1 x10^3/uL (4.0-11.0)
[2019-08-01 07:58] LABS: CALCIUM 9.2 mg/dL (8.5-10.1); CREATININE 1.5 mg/dL (0.7-1.3); GFR 63.7; POTASSIUM 3.6 mmol/L (3.5-5.1)
[2019-08-01 08:04] LABS: ALBUMIN 4.1 g/dL (3.4-5.0); TOTAL BILIRUBIN 1.5 mg/dL (0.2-1.0); TOTAL PROTEIN 8.2 g/dL (6.4-8.2)
[2019-08-01] MEDS ORDERED: ONDA4TAB12 PO (08:33)
[2019-08-01 09:00] VITALS: BP 141/69
[2019-08-01 09:45] LABS: BILIRUBIN,URINE SMALL (NEG); CLARITY,URINE CLEAR; COLOR,URINE AMBER; NITRITE,URINE NEGATIVE (NEG); PROTEIN,URINE 100 mg/dL (NEG-TRACE); UROBILINOGEN,URINE 0.2 mg/dL (0.2 mg/dL)
[2019-08-01 09:53] LABS: BARBITURATES NEG (NEG); BENZODIAZEPINES NEG (NEG); CANNABINOIDS POS (NEG); COCAINE POS (NEG); METHADONE NEG (NEG); OPIATES POS (NEG); PHENCYCLIDINE NEG (NEG)
[2019-08-01 09:54] LABS: AMPHETAMINE/METHAMPHETAMINE NEG (NEG)
[2019-08-01 10:00] LABS: BACTERIA,URINE 0 /HPF (0-FEW); HYALINE CASTS, URINE FEW /HPF; RBC,URINE 0 /HPF (0-2); SQUAMOUS EPITHELIAL CELL,UR FEW /LPF
== END 2019-08-01 10:23 | disposition home or self-care (01) ==
LOC: ER 07:27
DX: R11.2 Nausea with vomiting, unspecified (principal); F12.929 Cannabis use, unspecified with intoxication, unspecified; F17.200 Nicotine dependence, unspecified, uncomplicated; F12.90 Cannabis use, unspecified, uncomplicated; Z98.890 Other specified postprocedural states
CPT/HCPCS: 36415; 80053; 80307; 81001; 83690; 85025; 96361; 96374; 99284; J1630; J7030

== ENCOUNTER 2019-11-14 13:22 | Emergency (ER) | payer OTHER ==
[~2019-11-14] VITALS: Ht 180.3 cm; Wt 113.6 kg
[~2019-11-14 13:22] MED LIST changes: +ONDA4TAB12 PO
--- NOTE | 2019-11-14 13:40 | PHYS DOC ---
Past Medical History Past Medical History: No Pertinent History Additional Past Medical Histor: Vomiting r/t reaction to cannabis. Past Surgical History: Other Additional Past Surgical Histo: R WRIST ORIF Smoking Status: Current Every Day Smoker Alcohol Use: Rarely Drug Use: Marijuana General Adult EDM: Chief Complaint: NAUSEA/VOMITING/DIARRHA HPI: HPI: Patient is a 39 year old with a history of cannabis hyperemesis syndrome presents with 2-day history of nausea and vomiting. Patient denies pain. Patient denies any diarrhea. Patient says he stopped smoking marijuana 2 days ago. Symptoms are worse with eating and drinking. Patient says he is very tired because he has been able to sleep. Review of Systems: Review of Systems: Constitutional: Denies fever or chills. [] Eyes: Denies change in visual acuity. [] HENT: Denies nasal congestion or sore throat. [] Respiratory: Denies cough or shortness of breath. [] Cardiovascular: Denies chest pain or edema. [] GI: Denies abdominal pain, but complains of nausea vomiting, no diarrhea or blood in the stools : Denies dysuria. [] Musculoskeletal: Denies back pain or joint pain. [] Integument: Denies rash. [] Neurologic: Denies headache, focal weakness or sensory changes. [] Endocrine: Denies polyuria or polydipsia. [] Lymphatic: Denies swollen glands. [] Psychiatric: Denies depression or anxiety. [] Heart Score: Risk Factors: Risk Factors: DM, Current or recent (<one month) smoker, HTN, HLP, family history of CAD, obesity. Risk Scores: Score 0 - 3: 2.5% MACE over next 6 weeks - Discharge Home Score 4 - 6: 20.3% MACE over next 6 weeks - Admit for Clinical Observation Score 7 - 10: 72.7% MACE over next 6 weeks - Early Invasive Strategies Allergies: Allergies: Allergies Coded Allergies Type Severity Reaction Last Updated Verified No Known Drug Allergies 12/05/18 No Physical Exam: PE: Constitutional: Well developed, well nourished, no acute distress, non-toxic appearance. [] HENT: Normocephalic, atraumatic, bilateral external ears normal, nose normal. [] Eyes: PERRLA, EOMI, conjunctiva normal, no discharge. [] Neck: Normal range of motion, no tenderness, supple, no stridor. [] Cardiovascular:Heart rate regular rhythm, Lungs & Thorax: No respiratory distress Abdomen: soft, no tenderness, no masses, no pulsatile masses. [] Skin: Warm, dry, no erythema, no rash. [] Back: No tenderness, no CVA tenderness. [] Extremities: No tenderness, no cyanosis, no clubbing, ROM intact, no edema. [] Neurologic: Drowsy but arousable no focal deficits Psychologic: Affect normal, judgement normal, mood normal. [] Current Patient Data: Labs: Current Medications Medications (Trade) Dose Ordered Sig/Anisha Route PRN Reason Start Time Stop Time Status Last Admin Dose Admin Ondansetron HCl (Zofran Odt) 4 mg 1X ONCE PO 11/14/19 13:45 11/14/19 13:48 DC 11/14/19 13:59 Vital Signs: Vital Signs Date Time Temp Pulse Resp B/P (MAP) Pulse Ox O2 Delivery O2 Flow Rate FiO2 11/14/19 13:22 98.1 49 20 154/90 (111) 100 Room Air 98.1 Vital Signs Date Time Temp Pulse Resp B/P (MAP) Pulse Ox O2 Delivery O2 Flow Rate FiO2 11/14/19 13:22 98.1 49 20 154/90 (111) 100 Room Air 98.1 EKG: EKG: [] EKG interpreted by me sinus bradycardia with a rate of 47 normal axis normal intervals normal ST segments Radiology/Procedures: Radiology/Procedures: [] Course & Med Decision Making: Course & Med Decision Making Pertinent Labs and Imaging studies reviewed. (See chart for details) [] 39-year-old with cyclic vomiting. Patient given fluids and Zofran and clinically improved. Patient has hypokalemia which is been treated. Patient's girlfriend recently tested positive for trichomonas so he will get a prescription for Flagyl as well as Zofran. Abdomen is soft and nontender. Neurological exam without focal deficit Dragon Disclaimer: Tom Disclaimer: This electronic medical record was generated, in whole or in part, using a voice recognition dictation system. Departure Departure Impression: Primary Impression: Cannabinoid hyperemesis syndrome Additional Impression: Hypokalemia Disposition: 01 HOME, SELF-CARE Condition: STABLE Referrals: NO PCP (PCP) URMILA VICENTE MD 2-3 days Patient Instructions: Cyclic Vomiting Syndrome, Marijuana Abuse-Brief, Nausea and Vomiting Additional Instructions: EMERGENCY DEPARTMENT GENERAL DISCHARGE INSTRUCTIONS THANK YOU for coming to [facility] Emergency Department (ED) today and trusting us with your care. We trust that you had a positive experience in our Emergency Department. If you wish to speak to the department Management you can contact the whey department operator at . YOUR FOLLOW UP INSTRUCTIONS ARE FOLLOWS: Do you have a private doctor? If you do not have a private doctor, please ask for a resource list of physicians or clinics that may be able to assist you with follow up care. The Emergency Physician has interpreted your x-rays. The X-ray specialist will also review them. If there is a change in the findings you will be notified in 48 hours when at all possible. A lab test or lab culture may have been done, your results will be reviewed and you will be notified if you need a change in treatment. ADDITIONAL INSTRUCTIONS AND INFORMATION Your care today has been supervised by a physician who is specially trained in emergency care. Many problems require more than one evaluation for a complete diagnosis and treatment. We recommend that you schedule your follow up appointment as recommended to ensure complete treatment of your illness or injury. If you are unable to obtain follow up care and continue to have a problem, or if your condition worsens we recommend that you return to the ED. We are not able to safely determine your condition over the phone nor are we able to give sound medical advice over the phone. For these safety reasons, if you call for medical advice we will ask you to come to the ED for further evaluation If you have any questions regarding these discharge instructions please call the ED at . SAFETY INFORMATION In the interest of safety, wellness, and injury prevention; we encourage you to wear your seatbelt, if you smoke; quit smoking, and we encourage your family to use protective helmet for bicycling and other sporting events that present an increased risk for head injury. IF YOUR SYMPTOMS WORSEN OR NEW SYMPTOMS DEVELOP, OR YOU HAVE CONCERNS ABOUT YOUR CONDITION; OR IF YOUR CONDITION WORSENS WHILE YOU ARE WAITING FOR YOUR FOLLOW UP APPOINTMENT; EITHER CONTACT YOUR PRIMARY CARE DOCTOR, THE PHYSICIAN WHOSE NAME AND NUMBER YOU WERE GIVEN, OR RETURN TO THE ED IMMEDIATELY. Scripts Ondansetron Hcl (ZOFRAN) 4 Mg Tablet 1 TAB PO PRN Q6-8HRS, #12 TAB Prov: NIURKA,URMILA MD 11/14/19 Metronidazole (FLAGYL) 500 Mg Tablet 1 TAB PO TID, #30 TAB Prov: URMILA BAH MD 11/14/19 Justicifation of Admission Dx: Justifications for Admission: Justification of Admission Dx: N/A URMILA BAH MD Nov 14, 2019 13:40
[2019-11-14] MEDS ORDERED: ONDANSETRON ODT 4 MG TAB.RAPDIS. PO ONE (13:45)
[2019-11-14 15:37] LABS: BASO % 0 % (0-3); EOS % 0 % (0-3); HEMOGLOBIN 15.5 g/dL (13.0-17.5); LYMPH # 2.8 x10^3/uL (1.0-4.8); LYMPH % 22 % (24-48); MEAN CORPUSCULAR HEMOGLOBIN 30 pg (25-35); MEAN CORPUSCULAR HGB CONC 34 g/dL (31-37); MEAN CORPUSCULAR VOLUME 87 fL (79-100); MONO # 1.6 x10^3/uL (0.0-1.1); MONO % 12 % (0-9); NEUT # 8.5 x10^3/uL (1.8-7.7); NEUT % 66 % (31-73); PLATELET COUNT 268 x10^3/uL (140-400); RED BLOOD COUNT 5.16 x10^6/uL (4.30-5.70); RED CELL DISTRIBUTION WIDTH 14.2 % (11.5-14.5)
[2019-11-14 15:45] LABS: CALCIUM 8.9 mg/dL (8.5-10.1); CREATININE 1.3 mg/dL (0.7-1.3); GFR 75.2
[2019-11-14] MEDS ORDERED: IV NORMAL SALINE 1000ML BAG 1,000 ML IV ONE (15:45)
[2019-11-14] MEDS ORDERED: ONDANSETRON PF 4 MG/2 ML VIAL. IVP ONE (15:45)
[2019-11-14 15:47] LABS: POTASSIUM 2.8 mmol/L (3.5-5.1)
[2019-11-14 16:00] VITALS: BP 161/76
[2019-11-14] MEDS ORDERED: POTASSIUM CHLORIDE 20 MEQ TABLET.ER. PO ONE (16:00)
[2019-11-14] MEDS ORDERED: ONDA4TAB7 PO (16:19)
[2019-11-14] MEDS ORDERED: METR500T PO (16:19)
--- NOTE | 2019-11-15 03:36 | EKG ---
[facility] [address] [place] [address] Test Date: 2019-11-14 Test Time: 13:31:56 Pat Name: JACOBY TORRES Department: Room: Gender: M Light Industrial Supervisor: : 1980 Requested By: URMILA BAH Order Number: [id number] Reading MD: Measurements Intervals [place] Rate: 47 P: 36 VT: 172 QRS: 27 QRSD: 80 T: -7 QT: 464 QTc: 414 Interpretive Statements SINUS BRADYCARDIA OTHERWISE NORMAL ECG RI6.01 No previous ECG available for comparison
== END 2019-11-14 16:35 | disposition home or self-care (01) ==
LOC: ER 13:22
DX: E87.6 Hypokalemia (principal); F17.200 Nicotine dependence, unspecified, uncomplicated; F12.90 Cannabis use, unspecified, uncomplicated; Z98.890 Other specified postprocedural states
CPT/HCPCS: 36415; 80048; 85025; 96361; 96374; 99284; J2405; J7030; 93005

== ENCOUNTER 2019-11-18 17:10 | Emergency (ER) | payer OTHER ==
[~2019-11-18] VITALS: Ht 180.3 cm; Wt 118.0 kg
[~2019-11-18 17:10] MED LIST changes: +METR500T PO
--- NOTE | 2019-11-18 17:38 | RAD ---
Chest AP portable 11/18/2019. Reason for exam: Chest pain. Comparison is made with a study of 07/30/2019. No infiltrate or effusion is seen. Heart size and pulmonary vascularity appear normal. IMPRESSION: No acute disease. Electronically signed by: Ayan Noriega Jr., MD (11/18/2019 5:35 PM) [facility]
[2019-11-18 17:41] LABS: BASO # 0.1 x10^3/uL (0.0-0.2); BASO % 1 % (0-3); EOS % 0 % (0-3); HEMATOCRIT 47.5 % (39.0-53.0); HEMOGLOBIN 16.4 g/dL (13.0-17.5); LYMPH # 1.5 x10^3/uL (1.0-4.8); LYMPH % 13 % (24-48); MEAN CORPUSCULAR HEMOGLOBIN 30 pg (25-35); MEAN CORPUSCULAR HGB CONC 35 g/dL (31-37); MEAN CORPUSCULAR VOLUME 87 fL (79-100); MONO # 1.3 x10^3/uL (0.0-1.1); MONO % 11 % (0-9); NEUT # 8.4 x10^3/uL (1.8-7.7); NEUT % 75 % (31-73); PLATELET COUNT 275 x10^3/uL (140-400); RED BLOOD COUNT 5.46 x10^6/uL (4.30-5.70); RED CELL DISTRIBUTION WIDTH 13.8 % (11.5-14.5); WHITE BLOOD COUNT 11.2 x10^3/uL (4.0-11.0)
[2019-11-18 17:50] LABS: PROTHROMBIN TIME PATIENT 12.6 SEC (11.7-14.0)
[2019-11-18 17:51] LABS: CALCIUM 9.5 mg/dL (8.5-10.1); CREATININE 1.6 mg/dL (0.7-1.3); GFR 59.1; POTASSIUM 3.3 mmol/L (3.5-5.1)
[2019-11-18 17:56] LABS: ALBUMIN 4.4 g/dL (3.4-5.0); ALBUMIN/GLOBULIN RATIO 1.2 (1.0-1.7); MAGNESIUM 2.3 mg/dL (1.8-2.4); TOTAL BILIRUBIN 1.8 mg/dL (0.2-1.0)
[2019-11-18] MEDS ORDERED: METOCLOPRAMIDE HCL 10 MG/2 ML VIAL. IVP ONE (18:00)
[2019-11-18] MEDS ORDERED: diphenhydrAMINE 50 MG/ML VIAL IVP ONE (18:00)
[2019-11-18] MEDS ORDERED: POTASSIUM CHLORIDE 20 MEQ TABLET.ER. PO ONE (18:15)
[2019-11-18] MEDS ORDERED: IV NORMAL SALINE 1000ML BAG 1,000 ML IV ONE (18:15)
--- NOTE | 2019-11-18 18:17 | PHYS DOC ---
Past Medical History Past Medical History: Cyclic Vomiting Additional Past Medical Histor: Vomiting r/t reaction to cannabis. (MARY CURRY DO) Past Surgical History: Other Additional Past Surgical Histo: R WRIST ORIF (MARY CURRY DO) Smoking Status: Current Every Day Smoker Alcohol Use: None Drug Use: Marijuana (MARY CURRY DO) General Adult EDM: Chief Complaint: ABDOMINAL PAIN HPI: HPI: Patient is a 39 year old with a history of cannabis hyperemesis syndrome presents with 1 WEEK history of nausea and vomiting. Patient denies any abdominal pain. He had some epigastric burning sensation earlier. Patient denies any diarrhea. Patient says he last smoked marijuana 7 days ago. Symptoms are worse with eating and drinking. Patient has been evaluated here at the end of October and at [facility] for the same problem. Patient denies any fever, no cough. Patient denies any been exposed to anybody who tested positive for COVID-19. Patient was admitted here on July 30 2019 for chest pain. Patient was evaluated by cardiology, had normal echo done on July 31, 2019. He was felt to have chest pain due to cocaine abuse. (MARY CURRY DO) Review of Systems: Review of Systems: Constitutional: Denies fever or chills. [] Eyes: Denies change in visual acuity. [] HENT: Denies nasal congestion or sore throat. [] Respiratory: Denies cough or shortness of breath. [] Cardiovascular: Denies chest pain or edema. [] GI: Positive for nausea, vomiting, no bloody stools or diarrhea. No abdominal pain at this time : Denies dysuria. [] Musculoskeletal: Denies back pain or joint pain. [] Integument: Denies rash. [] Neurologic: Denies headache, focal weakness or sensory changes. [] Endocrine: Denies polyuria or polydipsia. [] Lymphatic: Denies swollen glands. [] Psychiatric: Denies depression or anxiety. [] (MARY CURRY DO) Heart Score: HEART Score for Chest Pain: HEART Score for Chest Pain Response (Comments) Value History Slighlty/Non-Suspicious 0 ECG Normal 0 Age < 45 0 Risk Factors 1 or 2 Risk Factors 1 Troponin < Normal Limit 0 Total 1 Risk Factors: Risk Factors: DM, Current or recent (<one month) smoker, HTN, HLP, family history of CAD, obesity. Risk Scores: Score 0 - 3: 2.5% MACE over next 6 weeks - Discharge Home Score 4 - 6: 20.3% MACE over next 6 weeks - Admit for Clinical Observation Score 7 - 10: 72.7% MACE over next 6 weeks - Early Invasive Strategies (MARY CURRY DO) Current Medications: Current Medications Medications (Trade) Dose Ordered Sig/Anisha Start Time Stop Time Status Last Admin Dose Admin Diphenhydramine HCl (Benadryl) 50 mg 1X ONCE 11/18/19 18:00 11/18/19 18:01 DC Metoclopramide HCl (Reglan Vial) 10 mg 1X ONCE 11/18/19 18:00 11/18/19 18:01 DC Sodium Chloride 1,000 ml @ 1,000 mls/hr 1X ONCE 11/18/19 18:15 11/18/19 19:14 (MARY CURRY DO) Allergies: Allergies: Allergies Coded Allergies Type Severity Reaction Last Updated Verified No Known Drug Allergies 12/05/18 No (MARY CURRY DO) Physical Exam: PE: Constitutional: Well developed, well nourished, no acute distress, non-toxic appearance. [] HENT: Normocephalic, atraumatic, bilateral external ears normal, oropharynx moist, no oral exudates, nose normal. [] Eyes: PERRLA, EOMI, conjunctiva normal, no discharge. [] Neck: Normal range of motion, no tenderness, supple, no stridor. [] Cardiovascular:Heart rate regular rhythm, no murmur [] Lungs & Thorax: Bilateral breath sounds clear to auscultation [] Abdomen: Bowel sounds normal, soft, no tenderness, no masses, no pulsatile masses. [] Skin: Warm, dry, no erythema, no rash. [] Back: No tenderness, no CVA tenderness. [] Extremities: No tenderness, no cyanosis, no clubbing, ROM intact, no edema. [] Neurologic: Alert and oriented X 3, normal motor function, normal sensory function, no focal deficits noted. [] Psychologic: Affect normal, judgement normal, mood normal. [] (MARY CURRY DO) PE: Constitutional: Well developed, well nourished, non-toxic appearance HENT: Normocephalic, atraumatic Eyes: Conjunctiva normal, no discharge Neck: Normal range of motion, supple Lungs & Thorax: No respiratory distress, equal chest rise and fall Abdomen: Soft, no tenderness, no guarding/rebound tenderness/distention Skin: Warm, dry, no erythema, no rash Neurologic: Alert and oriented X 3, no focal deficits noted Psychologic: Affect normal, judgment normal (LACEY WILDER DO) Current Patient Data: Labs: Laboratory Tests Test 11/18/19 17:30 White Blood Count 11.2 x10^3/uL (4.0-11.0) H Red Blood Count 5.46 x10^6/uL (4.30-5.70) Hemoglobin 16.4 g/dL (13.0-17.5) Hematocrit 47.5 % (39.0-53.0) Mean Corpuscular Volume 87 fL (79-100) Mean Corpuscular Hemoglobin 30 pg (25-35) Mean Corpuscular Hemoglobin Concent 35 g/dL (31-37) Red Cell Distribution Width 13.8 % (11.5-14.5) Platelet Count 275 x10^3/uL (140-400) Neutrophils (%) (Auto) 75 % (31-73) H Lymphocytes (%) (Auto) 13 % (24-48) L Monocytes (%) (Auto) 11 % (0-9) H Eosinophils (%) (Auto) 0 % (0-3) Basophils (%) (Auto) 1 % (0-3) Neutrophils # (Auto) 8.4 x10^3/uL (1.8-7.7) H Lymphocytes # (Auto) 1.5 x10^3/uL (1.0-4.8) Monocytes # (Auto) 1.3 x10^3/uL (0.0-1.1) H Eosinophils # (Auto) 0.0 x10^3/uL (0.0-0.7) Basophils # (Auto) 0.1 x10^3/uL (0.0-0.2) Prothrombin Time 12.6 SEC (11.7-14.0) Prothrombin Time INR 1.0 (0.8-1.1) Activated Partial Thromboplast Time 25 SEC (24-38) Sodium Level 135 mmol/L (136-145) L Potassium Level 3.3 mmol/L (3.5-5.1) L Chloride Level 94 mmol/L (98-107) L Carbon Dioxide Level 28 mmol/L (21-32) Anion Gap 13 (6-14) Blood Urea Nitrogen 13 mg/dL (8-26) Creatinine 1.6 mg/dL (0.7-1.3) H Estimated GFR (Cockcroft-Gault) 59.1 BUN/Creatinine Ratio 8 (6-20) Glucose Level 124 mg/dL (70-99) H Calcium Level 9.5 mg/dL (8.5-10.1) Magnesium Level 2.3 mg/dL (1.8-2.4) Total Bilirubin 1.8 mg/dL (0.2-1.0) H Aspartate Amino Transferase (AST) 45 U/L (15-37) H Alanine Aminotransferase (ALT) 129 U/L (16-63) H Alkaline Phosphatase 100 U/L (46-116) Troponin I Quantitative < 0.017 ng/mL (0.000-0.055) LE-Jwk-S-Type Natriuretic Peptide < 5 pg/mL (0-124) Total Protein 8.0 g/dL (6.4-8.2) Albumin 4.4 g/dL (3.4-5.0) Albumin/Globulin Ratio 1.2 (1.0-1.7) Lipase 75 U/L (73-393) Laboratory Tests 11/18/19 17:30 Laboratory Tests 11/18/19 17:30 Vital Signs: Vital Signs Date Time Temp Pulse Resp B/P (MAP) Pulse Ox O2 Delivery O2 Flow Rate FiO2 11/18/19 17:10 98.9 89 18 155/78 (103) 99 Room Air 98.9 (MARY CURRY DO) EKG: EKG: EKG was done at 1712, heart rate of 54 bpm, sinus bradycardia, QT 504 MS, QTC 480 MS, no STEMI. (MARY CURRY DO) Radiology/Procedures: Radiology/Procedures: [facility] [address] [place], [place] [id number] IMAGING REPORT Signed PATIENT: JACOBY TORRES ACCOUNT: [id number] : 1980 LOCATION: ER AGE: 39 SEX: M EXAM STATUS: PRE ER ORD. PHYSICIAN: MARY CURRY DO REASON: CHEST PAIN PROCEDURE: PORTABLE CHEST 1V Chest AP portable 11/18/2019. Reason for exam: Chest pain. Comparison is made with a study of 07/30/2019. No infiltrate or effusion is seen. Heart size and pulmonary vascularity appear normal. IMPRESSION: No acute disease. Electronically signed by: Kathrine Noriega Jr., MD (11/18/2019 5:35 PM) [facility] DICTATED and SIGNED BY: KATHRINE NORIEGA Jr, MD DATE: 11/18/19 1730 (MARY CURRY DO) Course & Med Decision Making: Course & Med Decision Making Pertinent Labs and Imaging studies reviewed. (See chart for details) Patient is a 39-year-old male with history of cannabis hyperemesis, presented to ER with nausea vomiting, his liver function tests elevated, potassium level low, will transfer care to Dr. WILDER at shift change. (MARY CURRY DO) Course & Med Decision Making [id number]-signout received from Dr. Curry for patient with cyclic vomiting syndrome who continues to abuse marijuana. Labs reviewed. Hypokalemia previously addressed. LFTs slightly elevated. EKG stable. Chest x-ray without acute process. Abdominal ultrasound pending. Gallbladder sludge noted without definitive signs of cholecystitis. Patient stable for discharge with outpatient follow-up with PCP/GI/general surgery. GI and general surgery referrals provided. Discussed findings and plan with patient, who acknowledges understanding and agreement. (LACEY WILDER DO) Dragon Disclaimer: Tom Disclaimer: This electronic medical record was generated, in whole or in part, using a voice recognition dictation system. (MARY CURRY DO) Departure Departure Impression: Primary Impression: Cannabinoid hyperemesis syndrome Additional Impressions: Hypokalemia Cocaine abuse Cholelithiasis Qualified Codes: K80.20 - Calculus of gallbladder without cholecystitis without obstruction Disposition: 01 HOME, SELF-CARE Condition: STABLE Referrals: NO PCP (PCP) ÓSCAR ESPINAL MD, SCOTT S MD Patient Instructions: Cholelithiasis, Ilzz-jh-Bblk, Cocaine Abuse and Chemical Dependency, Cyclic Vomiting Syndrome, Hypokalemia-Brief, Marijuana Abuse and Chemical Dependency, Potassium Content of Foods Scripts Capsaicin (CAPSAICIN) 60 Gm Cream..g. 60 GM TP TID PRN for NAUSEA, #1 TUBE Prov: LACEY WILDER DO 11/18/19 Hyoscyamine Sulfate (LEVSIN-SL) 0.125 Mg Tab.subl 0.125 MG SL Q4-6HRS PRN for PAIN, #14 TAB Prov: LACEY WILDER DO 11/18/19 Famotidine (PEPCID) 20 Mg Tablet 20 MG PO BID, #14 TAB Prov: LACEY WILDER DO 11/18/19 Justicifation of Admission Dx: Justifications for Admission: Justification of Admission Dx: N/A (MARY CURRY DO) Justification of Admission Dx: N/A (LACEY WILDER DO) MARY CURRY DO Nov 18, 2019 18:17 LACEY WILDER DO Nov 18, 2019 20:10
[2019-11-18 19:36] LABS: BARBITURATES NEG (NEG); BENZODIAZEPINES NEG (NEG); CANNABINOIDS POS (NEG); COCAINE POS (NEG); METHADONE NEG (NEG); OPIATES NEG (NEG); PHENCYCLIDINE NEG (NEG)
--- NOTE | 2019-11-18 19:45 | RAD ---
STUDY: Realtime grayscale and color Doppler ultrasonography of the right upper quadrant INDICATION: Epigastric abdominal pain. Elevated liver function tests. COMPARISON: 12/05/2018. Findings: Poorly evaluated pancreas due to bowel gas. Increased hepatic echogenicity suggesting mild hepatic steatosis. No focal parenchymal abnormality. Gallbladder wall thickness is within normal limits. Small amount of layering sludge. No calcified gallstones. No sonographic Salazar's sign. The right kidney is normal in length at 10.3 cm. Cortical echogenicity and thickness are within normal limits. No hydronephrosis. Poorly visualized common duct and IVC. Impression: 1. Incompletely assessed common bile duct, pancreas and IVC due to bowel gas. 2. Small amount of gallbladder sludge. No sonographic findings to suggest acute cholecystitis. 3. Mildly increased hepatic echogenicity could be within normal limits for this patient or indicative mild fatty infiltration. Electronically signed by: CÉSAR ORTEGA MD (11/18/2019 7:42 PM) [id number]
[2019-11-18 19:54] LABS: AMPHETAMINE/METHAMPHETAMINE NEG (NEG)
[2019-11-18] MEDS ORDERED: CAPS60CR2 TP (20:07)
[2019-11-18] MEDS ORDERED: HYOS0.1265 SL (20:07)
[2019-11-18] MEDS ORDERED: FAMO-63 PO (20:07)
[2019-11-18 20:42] VITALS: BP 120/68
--- NOTE | 2019-11-20 07:05 | EKG ---
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
== END 2019-11-18 20:49 ==
LOC: ER 17:10
DX: K80.20 Calculus of gallbladder without cholecystitis without obstruction (principal); R11.2 Nausea with vomiting, unspecified; R10.13 Epigastric pain; F14.10 Cocaine abuse, uncomplicated; E87.6 Hypokalemia; F17.200 Nicotine dependence, unspecified, uncomplicated; F12.90 Cannabis use, unspecified, uncomplicated; Z98.890 Other specified postprocedural states
CPT/HCPCS: 36415; 71045; 76705; 80053; 80307; 83690; 83735; 83880; 84484; 85025; 85610; 85730; 96361; 96374; 96375; 99285; J1200; J2765; J7030; 93005